=== PATIENT | female | born 1990 ===

== ENCOUNTER 2023-04-29 08:11 | Emergency (ER) | payer OTHER ==
[~2023-04-29] VITALS: Ht 165.1 cm; Wt 57.3 kg
[2023-04-29 08:18] VITALS: BP 128/74; PULSE 92; RESP 16; TEMP 98.2
[2023-04-29 10:08] LABS: APPEARANCE,URINE HAZY (CLEAR); BILIRUBIN,URINE NEGATIVE (NEGATIVE); GLUCOSE, URINE (UA) NEGATIVE (NEGATIVE); KETONES,URINE NEGATIVE (NEGATIVE); LEUKOCYTE ESTERASE ,URINE LARGE (NEGATIVE); NITRATE,URINE NEGATIVE (NEGATIVE); OCCULT BLOOD,URINE LARGE (NEGATIVE); PROTEIN,URINE 30-70 mg/dL (NEGATIVE); SPECIFIC GRAVITIY, URINE 1.009 (1.003-1.030); UROBILINOGEN,URINE <=1.0 mg/dL (<=1.0)
[2023-04-29 10:17] LABS: RBC,URINE Full Field /HPF (0-2)
[2023-04-29 10:18] LABS: BACTERIA,URINE Moderate /HPF (None Seen)
== END 2023-04-29 11:41 | disposition left against medical advice (07) ==
LOC: EMS 08:11
DX: R31.9 Hematuria, unspecified (principal); R10.9 Unspecified abdominal pain; Z53.21 Procedure and treatment not carried out due to patient leaving prior to being seen by health care provider
CPT/HCPCS: 81001; 87086; 87186; 99281; Z7502